=== PATIENT | female | born 1960 | race Caucasian/White ===

== ENCOUNTER → 2017-06-29 | Outpatient (CLI) | payer BC ==
[2017-06-29 11:16] LABS: CH 28.7; CHCM 32.9; HCT 40.5 % (34.0-46.0); MCH 28.1 pg (25.0-35.0); MCV 87.6 fL (80.0-100.0); Mean Platelet Volume 7.9; RBC 4.62 m/uL (3.80-5.40); RDW 13.8 % (11.5-15.5); WBC 5.9 k/uL (3.8-10.6)
[2017-06-29 11:25] LABS: ALT 32 U/L (9-52); AST 23 U/L (14-36); Alkaline Phosphatase 57 U/L (38-126); Anion Gap 9 mmol/L; Blood Urea Nitrogen 12 mg/dL (7-17); Calcium 9.9 mg/dL (8.4-10.2); Carbon Dioxide 31 mmol/L (22-30); Chloride 97 mmol/L (98-107); Glucose 93 mg/dL (74-99); Non-African American GFR(MDRD) >60 (>60 ml/min/1.73 sqM); Sodium 137 mmol/L (137-145); Total Bilirubin 0.5 mg/dL (0.2-1.3); Total Protein 7.3 g/dL (6.3-8.2)
== END | disposition home or self-care (01) ==
LOC: LABWHC1 10:33
PROVIDERS: ATTEND Psychiatry & Neurology Psychiatry
DX: Z01.812 Encounter for preprocedural laboratory examination (principal)
CPT/HCPCS: 36415; 80053; 80164; 84443; 85027

== ENCOUNTER → 2018-03-29 | Outpatient (CLI) | payer BC ==
[2018-03-29 08:12] VITALS: BP 95/67; PULSE 60; RESP 16; TEMP 97.8; BMI 27.8
--- NOTE | 2018-03-29 08:47 | P.HPOB ---
History of Present Illness H&P Date: 03/29/18 Chief Complaint: The patient is here for her routine gynecologic exam and mammogram. This is a 57-year-old G to P2 with an LMP of 12/29/2011. The patient is without gynecologic complaints and denies any postmenopausal bleeding. Review of Systems The patient has lost 12 pounds over the last 2 years. She denies respiratory, cardiac, or G.I. problems. Past Medical History Additional Past Medical History / Comment(s): Bipolar disorder. 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 History of Any Multi-Drug Resistant Organisms: None Reported Past Surgical History: Section, Orthopedic Surgery (Shoulder surgery ) Additional Past Surgical History / Comment(s): Colonoscopy 2011. 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 - Past Family History Mother Additional Family Medical History / Comment(s): Mother had heart disease. She had a maternal aunt who had breast cancer. Father Additional Family Medical History / Comment(s): Father committed suicide. She had a paternal aunt who had breast cancer. Medications and Allergies Home Medications Medication Instructions Recorded Confirmed Type Cholecalciferol [Vitamin D3] 1,000 unit PO DAILY 03/29/18 03/29/18 History Divalproex Sodium 250 mg PO DIRECTED 03/29/18 03/29/18 History Divalproex Sodium 250 mg PO HS 03/29/18 03/29/18 History FLUoxetine HCL [PROzac] 10 mg PO DAILY 03/29/18 03/29/18 History FLUoxetine HCL [PROzac] 20 mg PO DAILY 03/29/18 03/29/18 History L.acidoph,Paracasei, B.lactis 1 each PO DAILY 03/29/18 03/29/18 History [Probiotic] Multivitamins, Thera [Multivitamin 1 tab PO DAILY 03/29/18 03/29/18 History (formulary)] Allergies Allergy/AdvReac Type Severity Reaction Status Date / Time No Known Allergies Allergy Verified 03/29/18 08:39 Exam - Vital Signs Vital signs: Vital Signs Temp Pulse Resp BP 03/29/18 08:04 97.8 F 60 16 95/67 Intake and Output 03/28/18 03/29/18 03/29/18 22:59 06:59 14:59 Other: Weight 68.946 kg Height 5'2", BMI 27.8. This is a well-developed well-nourished white female who is alert and oriented times 3 in no acute distress. HEENT: Within normal limits. NECK: Supple without mass or thyromegaly. CHEST AND LUNGS: Clear to auscultation. HEART: Regular rate and rhythm. BREASTS: Are without mass or discharge. There is minimal right breast tenderness without palpable mass. AXILLARY EXAM: Negative for adenopathy. BACK: Negative for CVA tenderness. ABDOMEN: Soft, nontender, without palpable masses. PELVIC EXAM: Normal external genitalia. Cervix and vagina appear normal with minimal atrophy. There is no unusual discharge. There is no evidence of prolapse. The uterus is midposition, nongravid size and nontender. There are no palpable adnexal masses or tenderness. RECTAL EXAM: rectovaginal exam is negative for mass or tenderness and is negative for occult blood. EXTREMITIES: Nontender. IMPRESSION: 1. 57-year-old menopausal female with normal gynecologic exam. PLAN: 1. Pap smear was performed. 2. Self breast awareness was discussed. 3. Screening mammogram will be done today. 4. Osteoporosis prevention was discussed. She had a normal bone density test done in 2010 per the patient. 5. She will return in one year.
--- NOTE | 2018-03-31 11:54 | MM ---
Reason for exam: screening (asymptomatic). Last mammogram was performed 2 years and 5 months ago. History: Patient is postmenopausal. Family history of breast cancer in paternal aunt at age 65 and breast cancer in maternal aunt at age 65. Benign cyst aspiration of the left breast. Physical Findings: A clinical breast exam by your physician is recommended on an annual basis and results should be correlated with mammographic findings. MG 3D Screening Mammo W/Cad Bilateral CC and MLO view(s) were taken. Prior study comparison: October 15, 2015, bilateral MG screening mammo w CAD. September 04, 2014, bilateral MG screening mammo w CAD. There are scattered fibroglandular densities. No significant changes when compared with prior studies. ASSESSMENT: Benign, BI-RAD 2 RECOMMENDATION: Routine screening mammogram of both breasts in 1 year.
== END | disposition home or self-care (01) ==
LOC: WWCWWP 07:50
PROVIDERS: ATTEND Obstetrics & Gynecology
DX: Z12.31 Encounter for screening mammogram for malignant neoplasm of breast (principal)
CPT/HCPCS: 77063; 77067

== ENCOUNTER 2018-12-15 09:04 | Emergency (ER) | payer OTHER ==
[2018-12-15] MEDS ORDERED: SODIUM CHLORIDE 0.9% 1,000 ML IV STA (09:30)
--- NOTE | 2018-12-15 09:33 | ED ---
General Adult HPI - General Chief complaint: Back Pain/Injury Stated complaint: lower left abdominal pain Time Seen by Provider: 12/15/18 09:14 Source: patient, RN notes reviewed Mode of arrival: ambulatory Limitations: no limitations - History of Present Illness Initial comments: 58-year-old female presents emergency Department with chief complaint of left- sided abdominal and flank pain. Patient states that has been present for last 6-8 weeks but has worsened since Wednesday. Patient was told by her PCP that she was just constipated on multiple occasions. Patient states that she has taken laxatives and give herself an enema with no relief of the symptoms. Patient reports no nausea vomiting melena hematochezia. She has no current dysuria or hematuria. Patient had prior no other abdominal surgeries. - Related Data Home Medications Medication Instructions Recorded Confirmed Cholecalciferol [Vitamin D3] 1,000 unit PO DAILY 03/29/18 12/15/18 Divalproex Sodium 250 mg PO HS 03/29/18 12/15/18 Divalproex Sodium 750 mg PO QAM 03/29/18 12/15/18 L.acidoph,Paracasei, B.lactis 1 each PO DAILY 03/29/18 12/15/18 [Probiotic] Multivitamins, Thera [Multivitamin 1 tab PO DAILY 03/29/18 12/15/18 (formulary)] Docusate [Colace] 100 mg PO DAILY 12/15/18 12/15/18 FLUoxetine HCL [PROzac] 40 mg PO DAILY 12/15/18 12/15/18 Sennosides/Docusate Sodium 1 tab PO DAILY 12/15/18 12/15/18 [Senna-S Laxative Tablet] Vitamin B Complex 1 tab PO DAILY 12/15/18 12/15/18 Previous Rx's Medication Instructions Recorded Ciprofloxacin HCl [Cipro] 500 mg PO Q12HR #14 tablet 12/15/18 metroNIDAZOLE [Flagyl] 500 mg PO TID #21 tab 12/15/18 Allergies Allergy/AdvReac Type Severity Reaction Status Date / Time No Known Allergies Allergy Verified 03/29/18 08:39 Review of Systems ROS Statement: Those systems with pertinent positive or pertinent negative responses have been documented in the HPI. ROS Other: All systems not noted in ROS Statement are negative. Past Medical History Past Medical History: No Reported History Additional Past Medical History / Comment(s): Bipolar disorder. 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 History of Any Multi-Drug Resistant Organisms: None Reported Past Surgical History: Section, Orthopedic Surgery Additional Past Surgical History / Comment(s): Colonoscopy 2011. Past Anesthesia/Blood Transfusion Reactions: No Reported Reaction Past Psychological History: Bipolar Smoking Status: Former smoker Past Alcohol Use History: Rare Past Drug Use History: None Reported - Past Family History Mother Additional Family Medical History / Comment(s): Mother had heart disease. She had a maternal aunt who had breast cancer. Father Additional Family Medical History / Comment(s): Father committed suicide. She had a paternal aunt who had breast cancer. General Exam Limitations: no limitations General appearance: alert, in no apparent distress Head exam: Present: atraumatic, normocephalic, normal inspection Respiratory exam: Present: normal lung sounds bilaterally. Absent: respiratory distress, wheezes, rales, rhonchi, stridor Cardiovascular Exam: Present: regular rate, normal rhythm, normal heart sounds. Absent: systolic murmur, diastolic murmur, rubs, gallop, clicks GI/Abdominal exam: Present: soft, tenderness (Mild left lower quadrant tenderness), normal bowel sounds. Absent: distended, guarding, rebound, rigid Back exam: Absent: CVA tenderness (R), CVA tenderness (L) Skin exam: Present: warm, dry, intact, normal color. Absent: rash Course Vital Signs 12/15/18 09:06 Temperature 98.1 F Pulse Rate 73 Respiratory 18 Rate Blood Pressure 114/54 O2 Sat by Pulse 100 Oximetry Medical Decision Making - Medical Decision Making 58-year-old female presented for abdominal pain. Patient lab work, urinalysis and CT. CT shows evidence of colitis and stool burden. Patient also has evidence of pelvic congestion syndrome. 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 Patient which she for colitis and constipation with MiraLAX. - Lab Data Result diagrams: 12/15/18 09:51 12/15/18 09:51 Lab Results 12/15/18 12/15/18 12/15/18 Range/Units 09:51 09:51 09:51 WBC 5.0 (3.8-10.6) k/uL RBC 4.43 (3.80-5.40) m/uL Hgb 12.5 (11.4-16.0) gm/dL Hct 39.2 (34.0-46.0) % MCV 88.6 (80.0-100.0) fL MCH 28.2 (25.0-35.0) pg MCHC 31.9 (31.0-37.0) g/dL RDW 13.4 (11.5-15.5) % Plt Count 227 (150-450) k/uL Neutrophils % 49 % Lymphocytes % 39 % Monocytes % 7 % Eosinophils % 1 % Basophils % 0 % Neutrophils # 2.5 (1.3-7.7) k/uL Lymphocytes # 2.0 (1.0-4.8) k/uL Monocytes # 0.4 (0-1.0) k/uL Eosinophils # 0.0 (0-0.7) k/uL Basophils # 0.0 (0-0.2) k/uL Sodium 141 (137-145) mmol/L Potassium 4.4 (3.5-5.1) mmol/L Chloride 105 (98-107) mmol/L Carbon Dioxide 30 (22-30) mmol/L Anion Gap 6 mmol/L BUN 23 H (7-17) mg/dL Creatinine 0.67 (0.52-1.04) mg/dL Est GFR (CKD-EPI)AfAm >90 (>60 ml/min/1.73 sqM) Est GFR (CKD-EPI)NonAf >90 (>60 ml/min/1.73 sqM) Glucose 82 (74-99) mg/dL Calcium 9.2 (8.4-10.2) mg/dL Total Bilirubin 0.4 (0.2-1.3) mg/dL AST 25 (14-36) U/L ALT 26 (9-52) U/L Alkaline Phosphatase 55 (38-126) U/L Total Protein 6.7 (6.3-8.2) g/dL Albumin 3.8 (3.5-5.0) g/dL Amylase 41 (30-110) U/L Lipase 95 (23-300) U/L Urine Color Yellow Urine Appearance Clear (Clear) Urine pH 8.0 (5.0-8.0) Ur Specific [place] 1.019 (1.001-1.035) Urine Protein Trace H (Negative) Urine Glucose (UA) Negative (Negative) Urine Ketones Negative (Negative) Urine Blood Trace H (Negative) Urine Nitrite Negative (Negative) Urine Bilirubin Negative (Negative) Urine Urobilinogen <2.0 (<2.0) mg/dL Ur Leukocyte Esterase Negative (Negative) Urine RBC 15 H (0-5) /hpf Ur Squamous Epith Cells <1 (0-4) /hpf Urine Mucus Rare H (None) /hpf Disposition Clinical Impression: Colitis, Constipation Disposition: HOME SELF-CARE Condition: Stable Instructions (If sedation given, give patient instructions): Colitis (ED) Additional Instructions: Please return to the Emergency Department if symptoms worsen or any other concerns. Take [id number] MiraLAX Prescriptions: Ciprofloxacin HCl [Cipro] 500 mg PO Q12HR #14 tablet metroNIDAZOLE [Flagyl] 500 mg PO TID #21 tab Is patient prescribed a controlled substance at d/c from ED?: No Referrals: Cara Gonzales MD [Primary Care Provider] - 1-2 days Time of Disposition: 11:22
[2018-12-15] MEDS ORDERED: KETOROLAC 30 MG/ML 1 ML VIAL IVP STA (09:55)
[2018-12-15 10:24] LABS: Basophils % (A) 0 %; Eosinophils % (A) 1 %; HCT 39.2 % (34.0-46.0); HGB 12.5 gm/dL (11.4-16.0); Lymphocytes % (A) 39 %; MCH 28.2 pg (25.0-35.0); MCHC 31.9 g/dL (31.0-37.0); MCV 88.6 fL (80.0-100.0); Mean Platelet Volume 7.1; Monocytes # (A) 0.4 k/uL (0-1.0); Monocytes % (A) 7 %; Neutrophils # (A) 2.5 k/uL (1.3-7.7); Neutrophils % (A) 49 %; Platelet Count 227 k/uL (150-450); RBC 4.43 m/uL (3.80-5.40); RDW 13.4 % (11.5-15.5)
[2018-12-15 10:28] LABS: Appearance,Urine Clear (Clear); Bilirubin,Urine Negative (Negative); Blood,Urine Trace (Negative); Color,Urine Yellow; Glucose,Urine (UA) Negative (Negative); Ketones,Urine Negative (Negative); Leukocyte Esterase,Urine Negative (Negative); Mucus,Urine Rare /hpf; Nitrite,Urine Negative (Negative); Protein,Urine Trace (Negative); RBC,Urine 15 /hpf (0-5); Specific Gravity,Urine 1.019 (1.001-1.035); Squamous Epithelial Cell,Urine <1 /hpf (0-4); Urobilinogen,Urine <2.0 mg/dL (<2.0)
--- NOTE | 2018-12-15 10:29 | CT ---
EXAMINATION TYPE: CT abdomen pelvis w con DATE OF EXAM: 12/15/2018 HISTORY: LLQ pain, constipation CT DLP: 718.3mGycm Automated Exposure Control for Dose Reduction was Utilized. CONTRAST: CT scan of the abdomen and pelvis is performed with IV Contrast, patient injected with 100 mL of Isov ue 300. COMPARISON: None. FINDINGS: LUNG BASES: No significant abnormality is appreciated. LIVER/GB: There is mild hepatomegaly as the liver extends beyond the iliac crest. Too small to accura tely characterize left hepatic hypoattenuated lesion is present on image 20. No cholelithiasis. PANCREAS: No significant abnormality is seen. SPLEEN: No significant abnormality is seen. ADRENALS: There is slight thickening of the left adrenal gland although it maintains its normal adren iform shape, most commonly related to adrenal gland hyperplasia. KIDNEYS: There is are too small to accurately characterize bilateral renal lesions. Otherwise the kid neys enhance and excrete symmetrically. No hydronephrosis. BOWEL: There is a moderate fecal burden throughout the large bowel. Appendix is not clearly visualize d however no right lower quadrant fat stranding changes are seen. No dilated large or small bowel is noted. There is very subtle haziness surrounding the sigmoid colon and descending colon extending to the splenic flexure without bowel wall thickening. No pericolonic fluid collection to suggest abscess . UTERUS/ADNEXA: Pelvic varices are seen diffusely throughout the pelvis. LYMPH NODES: No greater than 1cm abdominal or pelvic lymph nodes are appreciated. OSSEOUS STRUCTURES: Mild multilevel degenerative changes of the lumbar spine are noted. IMPRESSION: 1. Findings highly suggestive of pelvic congestion syndrome. 2. Very subtle long segment pericolonic fat stranding surrounding the sigmoid colon, descending colon and splenic flexure that may relate to very mild acute uncomplicated colitis. Moderate burden coloni c stasis. 3. Hepatomegaly.
[2018-12-15 10:39] LABS: ALT 26 U/L (9-52); AST 25 U/L (14-36); Albumin 3.8 g/dL (3.5-5.0); Alkaline Phosphatase 55 U/L (38-126); Amylase 41 U/L (30-110); Anion Gap 6 mmol/L; Blood Urea Nitrogen 23 mg/dL (7-17); Calcium 9.2 mg/dL (8.4-10.2); Carbon Dioxide 30 mmol/L (22-30); Chloride 105 mmol/L (98-107); Glucose 82 mg/dL (74-99); Lipase 95 U/L (23-300); Potassium 4.4 mmol/L (3.5-5.1); Sodium 141 mmol/L (137-145); Total Bilirubin 0.4 mg/dL (0.2-1.3); Total Protein 6.7 g/dL (6.3-8.2)
[2018-12-15 11:43] VITALS: BP 104/66; PULSE 60; RESP 16; TEMP 97.7
== END 2018-12-15 11:40 | disposition home or self-care (01) ==
LOC: EC 09:04
DX: K59.00 Constipation, unspecified (principal); K52.9 Noninfective gastroenteritis and colitis, unspecified; F31.9 Bipolar disorder, unspecified; Z79.899 Other long term (current) drug therapy; Z87.891 Personal history of nicotine dependence
CPT/HCPCS: 36415; 74177; 80053; 81001; 82150; 83690; 85025; 96361; 96374; 99284

== ENCOUNTER → 2019-06-07 | Outpatient (CLI) | payer OTHER ==
[2019-06-07 08:01] VITALS: BP 101/71; PULSE 71; RESP 16; TEMP 97.9; BMI 29.9
--- NOTE | 2019-06-07 08:32 | P.HPOB ---
History of Present Illness H&P Date: 06/07/19 Chief Complaint: The patient is here for her routine gynecologic exam and ma mmogram. This is a 58-year-old with an LMP of 2011. The patient is without gynecologic complaints and denies any postmenopausal bleeding. Review of Systems The patient has gained 11 pounds over the last year. She denies respiratory, cardiac, or G.I. problems. Past Medical History Additional Past Medical History / Comment(s): Bipolar disorder. 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 History of Any Multi-Drug Resistant Organisms: None Reported Past Surgical History: Section, Orthopedic Surgery Additional Past Surgical History / Comment(s): Colonoscopy 2011. Past Anesthesia/Blood Transfusion Reactions: No Reported Reaction Past Psychological History: Bipolar Smoking Status: Former smoker Past Alcohol Use History: Rare Additional Past Alcohol Use History / Comment(s): Quit smoking in her early 20s. 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. - Past Family History Mother Additional Family Medical History / Comment(s): Mother had heart disease. She had a maternal aunt who had breast cancer. Father Additional Family Medical History / Comment(s): Father committed suicide. She had a paternal aunt who had breast cancer. Medications and Allergies Home Medications Medication Instructions Recorded Confirmed Type Cholecalciferol [Vitamin D3] 1,000 unit PO DAILY 03/29/18 06/07/19 History Divalproex Sodium 250 mg PO HS 03/29/18 06/07/19 History Divalproex Sodium 750 mg PO QAM 03/29/18 06/07/19 History L.acidoph,Paracasei, B.lactis 1 each PO DAILY 03/29/18 06/07/19 History [Probiotic] Multivitamins, Thera [Multivitamin 1 tab PO DAILY 03/29/18 06/07/19 History (formulary)] FLUoxetine HCL [PROzac] 40 mg PO DAILY 12/15/18 06/07/19 History Vitamin B Complex 1 tab PO DAILY 12/15/18 06/07/19 History Allergies Allergy/AdvReac Type Severity Reaction Status Date / Time No Known Allergies Allergy Verified 06/07/19 08:02 Exam Vital Signs Temp Pulse Resp BP Pulse Ox 06/07/19 07:54 97.9 F 71 16 101/71 99 Intake and Output 06/06/19 06/07/19 06/07/19 22:59 06:59 14:59 Other: Weight 74.389 kg Height 5'2", weight 164 pounds, BMI 30.0. This is a well-developed well-nourished white female who is alert and oriented times 3 in no acute distress. HEENT: Within normal limits. NECK: Supple without mass or thyromegaly. CHEST AND LUNGS: Clear to auscultation. HEART: Regular rate and rhythm. BREASTS: Are without mass or discharge. AXILLARY EXAM: Negative for adenopathy. BACK: Negative for CVA tenderness. ABDOMEN: Soft, nontender, without palpable masses. PELVIC EXAM: Normal external genitalia with minimal atrophy. Cervix and vagina appear normal with minimal atrophy. There is no unusual discharge. There is no evidence of prolapse. The uterus is midposition, nongravid size and nontender. There are no palpable adnexal masses or tenderness. RECTAL EXAM: recto vaginal exam is negative for mass or tenderness and is negative for occult blood. EXTREMITIES: Nontender. IMPRESSION: 1. 58-year-old menopausal female with normal gynecologic exam. PLAN: 1. Pap smear was deferred since she had a normal one on 03/29/2018. 2. Self breast awareness was discussed with the patient. 3. Screening mammogram will be done today. 4. Osteoporosis prevention was discussed. I have stressed the importance of adequate calcium, vitamin D and regular exercise. Recommended amounts of calcium and vitamin D were also discussed. We will plan on doing a bone density test at age 62. 5. She was advised to return in one year for her annual well woman exam.
--- NOTE | 2019-06-08 14:37 | MM ---
Reason for exam: screening (asymptomatic). Last mammogram was performed 1 year and 2 months ago. History: Patient is postmenopausal. Family history of breast cancer in paternal aunt at age 65 and breast cancer in maternal aunt at age 65. Benign cyst aspiration of the left breast. Physical Findings: A clinical breast exam by your physician is recommended on an annual basis and results should be correlated with mammographic findings. MG 3D Screening Mammo W/Cad Bilateral CC and MLO view(s) were taken. Prior study comparison: March 29, 2018, bilateral MG 3d screening mammo w/cad. October 15, 2015, bilateral MG screening mammo w CAD. The breast tissue is heterogeneously dense. This may lower the sensitivity of mammography. There are benign appearing round calcifications bilaterally. There is no discrete abnormality. ASSESSMENT: Benign, BI-RAD 2 RECOMMENDATION: Routine screening mammogram of both breasts in 1 year.
== END | disposition home or self-care (01) ==
LOC: WWCWWP 07:46
PROVIDERS: ATTEND Obstetrics & Gynecology
DX: Z12.31 Encounter for screening mammogram for malignant neoplasm of breast (principal)
CPT/HCPCS: 77063; 77067

== ENCOUNTER → 2020-07-16 | Outpatient (CLI) | payer OTHER ==
--- NOTE | 2020-07-16 10:07 | US ---
EXAMINATION TYPE: US abdomen complete DATE OF EXAM: 07/16/2020 COMPARISON: CT 12/15/2018 CLINICAL HISTORY: R10.11 right upper quadrant pain. EXAM MEASUREMENTS: Liver Length: 16.9 cm Gallbladder Wall: 0.1 cm CBD: 0.5 cm Spleen: 7.7 cm Right Kidney: 10.0 x 3.5 x 4.7 cm Left Kidney: 10.0 x 5.6 x 4.8 cm Pancreas: Obscured by bowel gas Liver: Tiny cystic area left lobe 0.6 cm Gallbladder: wnl Evidence for sonographic [place]'s sign: No CBD: wnl Spleen: wnl Right Kidney: No hydronephrosis. Tiny cystic area lower pole measuring 0.5 Left Kidney: No hydronephrosis. Multiple cystic areas visualized, largest measuring 0.9 cm Upper IVC: wnl Abd Aorta: wnl The liver is homogenous. Technologist marked subcentimeter thin-walled cyst left hepatic lobe likely corresponding to CT axial image 20. The intrahepatic portion of the IVC and visualized abdominal aor ta are within normal limits. There is no evidence of cholelithiasis. Common bile duct is unremarkab le. The visualized portions of the pancreas are homogenous on initial 4 images saved. The spleen is unremarkable. Kidneys are symmetric and free of hydronephrosis. Technologist amaral for a 5 mm thin -walled cyst right kidney lower pole level likely corresponds to CT lesion delayed axial image 34, sl ightly larger thin-walled cyst upper pole level image 22 not clearly seen on ultrasound images saved. Technologist amaral location subcentimeter thin-walled cysts throughout the left kidney which corresp onds to recent CT. IMPRESSION: No suspicious acute or new findings identified.
== END | disposition home or self-care (01) ==
LOC: RADUSWWP 07:01
PROVIDERS: ATTEND Family Medicine
DX: R10.11 Right upper quadrant pain (principal)
CPT/HCPCS: 76700

== ENCOUNTER → 2020-08-21 | Outpatient (CLI) | payer OTHER ==
[2020-08-21 08:08] VITALS: BP 93/66; PULSE 78; RESP 18; TEMP 98
--- NOTE | 2020-08-21 08:42 | P.HPOB ---
History of Present Illness H&P Date: 08/21/20 Chief Complaint: The patient is here for her routine gynecologic exam and ma mmogram. This is a 59-year-old with an LMP of 2011. The patient is without gynecologic complaints and denies any postmenopausal bleeding. Review of Systems The patient's weight has been stable over the last year. She denies respiratory or cardiac problems. GI: Occasional constipation. Past Medical History Past Medical History: No Reported History Additional Past Medical History / Comment(s): Bipolar disorder. 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 History of Any Multi-Drug Resistant Organisms: None Reported Past Surgical History: Section, Orthopedic Surgery Additional Past Surgical History / Comment(s): Colonoscopy 2019. Past Anesthesia/Blood Transfusion Reactions: No Reported Reaction Past Psychological History: Bipolar Smoking Status: Former smoker Past Alcohol Use History: Occasional (1 or 2 per month) Additional Past Alcohol Use History / Comment(s): Quit smoking in her early 20s. 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. - Past Family History Mother Additional Family Medical History / Comment(s): Mother had heart disease. She had a maternal aunt who had breast cancer. Father Additional Family Medical History / Comment(s): Father committed suicide. She had a paternal aunt who had breast cancer. Medications and Allergies Home Medications Medication Instructions Recorded Confirmed Type Cholecalciferol [Vitamin D3] 1,000 unit PO DAILY 03/29/18 08/21/20 History Divalproex Sodium 250 mg PO HS 03/29/18 08/21/20 History Divalproex Sodium 750 mg PO QAM 03/29/18 08/21/20 History L.acidoph,Paracasei, B.lactis 1 each PO DAILY 03/29/18 08/21/20 History [Probiotic] Multivitamins, Thera [Multivitamin 1 tab PO DAILY 03/29/18 08/21/20 History (formulary)] FLUoxetine HCL [PROzac] 40 mg PO DAILY 12/15/18 08/21/20 History Vitamin B Complex 1 tab PO DAILY 12/15/18 08/21/20 History Magnesium 200 mg PO DAILY 08/21/20 08/21/20 History Vitamin E 400 unit PO DAILY 08/21/20 08/21/20 History Allergies Allergy/AdvReac Type Severity Reaction Status Date / Time No Known Allergies Allergy Verified 08/21/20 08:00 Exam Vital Signs Temp Pulse Resp BP Pulse Ox 08/21/20 08:02 98.0 F 78 18 93/66 99 Intake and Output 08/20/20 08/21/20 08/21/20 22:59 06:59 14:59 Other: Weight 73.936 kg Height 5 feet 2 inches, weight 163 pounds, BMI 29.8. This is a well-developed well-nourished white female who is alert and oriented times 3 in no acute distress. HEENT: Within normal limits. NECK: Supple without mass or thyromegaly. CHEST AND LUNGS: Clear to auscultation. HEART: Regular rate and rhythm. BREASTS: Are without mass or discharge. AXILLARY EXAM: Negative for adenopathy. BACK: Negative for CVA tenderness. ABDOMEN: Soft, nontender, without palpable masses. PELVIC EXAM: Normal external genitalia with mild atrophy. Cervix and vagina appear normal with minimal atrophy. There is no unusual discharge. There is no evidence of prolapse. The uterus is midposition, nongravid size and nontender. There are no palpable adnexal masses or tenderness. RECTAL EXAM: Rectovaginal exam is negative for mass or tenderness and is negative for occult blood. A moderate amount of firm stool is noted in the rectum. EXTREMITIES: Nontender. IMPRESSION: 1. 59-year-old menopausal female with normal gynecologic exam. PLAN: 1. Pap smear cotest was performed. 2. Self breast awareness was discussed with the patient. 3. Screening mammogram will be done today. 4. Osteoporosis prevention was discussed. I have stressed the importance of adequate calcium, vitamin D and regular exercise. Recommended amounts of calcium and vitamin D were also discussed. We will plan on doing her next bone density test at age 62. 5. She was advised to return in one year for her annual well woman exam.
--- NOTE | 2020-08-22 11:32 | MM ---
Reason for exam: screening (asymptomatic). Last mammogram was performed 1 year and 2 months ago. History: Patient is postmenopausal. Family history of breast cancer in paternal aunt at age 65 and breast cancer in maternal aunt at age 65. Benign cyst aspiration of the left breast. Physical Findings: A clinical breast exam by your physician is recommended on an annual basis and results should be correlated with mammographic findings. MG 3D Screening Mammo W/Cad Bilateral CC and MLO view(s) were taken. Prior study comparison: June 07, 2019, bilateral MG 3d screening mammo w/cad. March 29, 2018, bilateral MG 3d screening mammo w/cad. No significant changes when compared with prior studies. ASSESSMENT: Benign, BI-RAD 2 RECOMMENDATION: Routine screening mammogram of both breasts in 1 year.
== END | disposition home or self-care (01) ==
LOC: WWCWWP 07:44
PROVIDERS: ATTEND Obstetrics & Gynecology
DX: Z12.31 Encounter for screening mammogram for malignant neoplasm of breast (principal)
CPT/HCPCS: 77063; 77067

== ENCOUNTER → 2020-09-09 | Outpatient (CLI) | payer OTHER ==
--- NOTE | 2020-09-09 12:56 | US ---
EXAMINATION TYPE: US thyroid st tissue head/neck DATE OF EXAM: 09/09/2020 COMPARISON: NONE CLINICAL HISTORY: 59-year-old female E04.1 THYROID NODULE. TECHNIQUE: Multiple sonographic images of the thyroid gland are obtained. FINDINGS: GLAND SIZE: Right Lobe: 4.4 x 1.1 x 1.5 cm Overall Parenchyma: Homogeneous Left Lobe: 4.6 x 1.1 x 1.2 cm Overall Parenchyma: homogeneous Isthmus Thickness: 0.3 cm NODULES RIGHT: # of nodules measured on right: 0 LEFT: # of nodules measured on left: 0 ISTHMUS: # of nodules measured in the isthmus: 0 Bilateral neck scanned, no evidence of lymphadenopathy. IMPRESSION: Borderline enlarged thyroid gland. No discrete nodules.
[2020-09-09 14:13] LABS: T4, Free (Free Thyroxine) 0.91 ng/dL (0.78-2.19)
== END | disposition home or self-care (01) ==
LOC: RADUSWWP 12:11
PROVIDERS: ATTEND Internal Medicine
DX: E04.9 Nontoxic goiter, unspecified (principal); E06.0 Acute thyroiditis
CPT/HCPCS: 76536; 84439; 84443

== ENCOUNTER → 2021-11-04 | Outpatient (CLI) | payer OTHER ==
[2021-11-04 08:54] VITALS: BP 119/67; PULSE 65; RESP 18; TEMP 97.9
--- NOTE | 2021-11-04 09:29 | P.HPOB ---
History of Present Illness H&P Date: 11/04/21 Chief Complaint: The patient is here for her routine gynecologic exam and ma mmogram. This is a 60-year-old with an LMP of 2011. The patient is without gynecologic complaints and denies any postmenopausal bleeding. Review of Systems The patient has gained 11 pounds over the last year. She denies cardiac or GI problems. Respiratory: She occasionally notices some phlegm when she has not taken a deep breath for a while. This can occasionally make her cough. Musculoskeletal: She has had occasional right shoulder discomfort. Past Medical History Past Medical History: No Reported History Additional Past Medical History / Comment(s): Bipolar disorder. 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 History of Any Multi-Drug Resistant Organisms: None Reported Past Surgical History: Section, Orthopedic Surgery Additional Past Surgical History / Comment(s): Colonoscopy 2020. Past Anesthesia/Blood Transfusion Reactions: No Reported Reaction Past Psychological History: Bipolar Smoking Status: Former smoker Past Alcohol Use History: Occasional (1 per week) Additional Past Alcohol Use History / Comment(s): Quit smoking in her early 20s. 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 She had a maternal aunt who had breast cancer. Father Additional Family Medical History / Comment(s): Father committed suicide. She had a paternal aunt who had breast cancer. Medications and Allergies Home Medications Medication Instructions Recorded Confirmed Type Cholecalciferol [Vitamin D3] 1,000 unit PO DAILY 03/29/18 11/04/21 History Divalproex Sodium 250 mg PO HS 03/29/18 11/04/21 History Divalproex Sodium 750 mg PO QAM 03/29/18 11/04/21 History L.acidoph,Paracasei, B.lactis 1 each PO DAILY 03/29/18 11/04/21 History [Probiotic] Multivitamins, Thera [Multivitamin 1 tab PO DAILY 03/29/18 11/04/21 History (formulary)] FLUoxetine HCL [PROzac] 40 mg PO DAILY 12/15/18 11/04/21 History Vitamin B Complex 1 tab PO DAILY 12/15/18 11/04/21 History Magnesium 200 mg PO DAILY 08/21/20 11/04/21 History Vitamin E 400 unit PO DAILY 08/21/20 11/04/21 History Allergies Allergy/AdvReac Type Severity Reaction Status Date / Time No Known Allergies Allergy Verified 11/04/21 08:49 Exam Vital Signs Temp Pulse Resp BP Pulse Ox 11/04/21 08:50 97.9 F 65 18 119/67 100 Intake and Output 11/03/21 11/04/21 11/04/21 22:59 06:59 14:59 Other: Weight 78.925 kg Height 5 feet 3 inches, weight 174 pounds, BMI 30.8. This is a well-developed well-nourished white female who is alert and oriented times 3 in no acute distress. HEENT: Within normal limits. NECK: Supple without mass or thyromegaly. CHEST AND LUNGS: Clear to auscultation. HEART: Regular rate and rhythm. BREASTS: Are without mass or discharge. AXILLARY EXAM: Negative for adenopathy. BACK: Negative for CVA tenderness. ABDOMEN: Soft, nontender, without palpable masses. PELVIC EXAM: Normal external genitalia. Cervix and vagina appear normal. There is no unusual discharge. There is no evidence of prolapse. The uterus is midposition, nongravid size and nontender. There are no palpable adnexal masses or tenderness. RECTAL EXAM: Rectovaginal exam is negative for mass or tenderness and is negative for occult blood. EXTREMITIES: Nontender. IMPRESSION: 1. 60-year-old menopausal female with normal gynecologic exam. PLAN: 1. Pap smear was deferred since she had a negative Pap smear cotest on 08/21/2020. 2. Self breast awareness was discussed with the patient. We have also discussed symptoms associated with inflammatory breast cancer. 3. Screening mammogram will be done today. 4. Osteoporosis prevention was discussed. I have stressed the importance of adequate calcium, vitamin D and regular exercise. Recommended amounts of calcium and vitamin D were also discussed. We will plan on repeating her bone density testing at age 62. 5. She has not received a Covid vaccination. I have strongly encouraged her to get a Covid vaccination especially given her place of employment. She will consider this. 6. She was advised to return in one year for her annual well woman exam.
--- NOTE | 2021-11-05 14:12 | MM ---
Reason for exam: screening (asymptomatic). Last mammogram was performed 1 year and 2 months ago. History: Patient is postmenopausal. Family history of breast cancer in paternal aunt at age 65 and breast cancer in maternal aunt at age 65. Benign cyst aspiration of the left breast. Physical Findings: A clinical breast exam by your physician is recommended on an annual basis and results should be correlated with mammographic findings. MG 3D Screening Mammo W/Cad Bilateral CC and MLO view(s) were taken. Prior study comparison: August 21, 2020, bilateral MG 3d screening mammo w/cad. June 07, 2019, bilateral MG 3d screening mammo w/cad. There are scattered fibroglandular densities. There are benign appearing round calcifications bilaterally. There is no discrete abnormality. ASSESSMENT: Benign, BI-RAD 2 RECOMMENDATION: Routine screening mammogram of both breasts in 1 year.
== END ==
LOC: WWCWWP 08:24
PROVIDERS: ATTEND Obstetrics & Gynecology
DX: Z12.31 Encounter for screening mammogram for malignant neoplasm of breast (principal); F31.9 Bipolar disorder, unspecified; Z87.891 Personal history of nicotine dependence; Z79.899 Other long term (current) drug therapy
CPT/HCPCS: 77063; 77067

== ENCOUNTER → 2024-01-12 | Outpatient (CLI) | payer OTHER ==
[2024-01-12 11:16] VITALS: BP 110/70; PULSE 63; RESP 17; TEMP 98
--- NOTE | 2024-01-12 12:08 | P.HPOB ---
History of Present Illness H&P Date: 01/12/24 Chief Complaint: The patient is here for her routine gynecologic exam and ma mmogram. This is a 63-year-old with an LMP of 2011. The patient is without gynecologic complaints and denies any postmenopausal bleeding. Review of Systems She has lost about 4 pounds over the past year. She denies respiratory or GI problems. Cardiac: She states she can get slightly short of breath with stair climbing. She states walking on the treadmill and exercise at [employer] does not seem to cause the same problems. Past Medical History Past Medical History: No Reported History Additional Past Medical History / Comment(s): Bipolar disorder. 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 History of Any Multi-Drug Resistant Organisms: None Reported Past Surgical History: Section, Orthopedic Surgery Additional Past Surgical History / Comment(s): Colonoscopy 2020(next after 5yr). Past Anesthesia/Blood Transfusion Reactions: No Reported Reaction Past Psychological History: Bipolar Smoking Status: Former smoker Past Alcohol Use History: Occasional (About 3 drinks per month.) Additional Past Alcohol Use History / Comment(s): Quit smoking in her early 20s. 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 - Past Family History Mother Additional Family Medical History / Comment(s): Mother had heart disease. She had a maternal aunt who had breast cancer. Father Additional Family Medical History / Comment(s): Father committed suicide. She had a paternal aunt who had breast cancer. Medications and Allergies Home Medications Medication Instructions Recorded Confirmed Type Cholecalciferol [Vitamin D3] 1,000 unit PO DAILY 03/29/18 01/12/24 History Divalproex Sodium 750 mg PO BID 03/29/18 01/12/24 History Multivitamins, Thera [Multivitamin 1 tab PO DAILY 03/29/18 01/12/24 History (formulary)] FLUoxetine HCL [PROzac] 40 mg PO BID 12/15/18 01/12/24 History Vitamin B Complex 1 tab PO DAILY 12/15/18 01/12/24 History Magnesium 200 mg PO DAILY 08/21/20 01/12/24 History Vitamin E 400 unit PO DAILY 08/21/20 01/12/24 History Allergies Allergy/AdvReac Type Severity Reaction Status Date / Time No Known Allergies Allergy Verified 01/12/24 10:40 Exam Vital Signs Temp Pulse Resp BP Pulse Ox 01/12/24 10:40 98 F 63 17 110/70 99 Intake and Output 01/11/24 01/12/24 01/12/24 22:59 06:59 14:59 Other: Weight 73.936 kg Height 5 feet 2 inches, weight 163 pounds, BMI 29.8 This is a well-developed well-nourished white female who is alert and oriented times 3 in no acute distress. HEENT: Within normal limits. NECK: Supple without mass or thyromegaly. CHEST AND LUNGS: Clear to auscultation. HEART: Regular rate and rhythm. BREASTS: Are without mass or discharge. AXILLARY EXAM: Negative for adenopathy. BACK: Negative for CVA tenderness. ABDOMEN: Soft, nontender, without palpable masses. PELVIC EXAM: Normal external genitalia mild atrophy. Cervix and vagina appear normal with mild atrophy. There is no unusual discharge. There is no evidence of prolapse. The uterus is midposition, nongravid size and nontender. There are no palpable adnexal masses or tenderness. RECTAL EXAM: Rectovaginal exam is negative for mass or tenderness and is negative for occult blood. EXTREMITIES: Nontender. IMPRESSION: 1. 63-year-old menopausal female with normal gynecologic exam. PLAN: 1. Pap smear was deferred since she had a negative Pap smear cotest on 08/21/2020 2. Self breast awareness was discussed with the patient. We have also discussed symptoms associated with inflammatory breast cancer. 3. Screening mammogram will be done today. 4. Osteoporosis prevention was discussed. I have stressed the importance of adequate calcium, vitamin D and regular exercise. Recommended amounts of calcium and vitamin D were also discussed. Bone density testing will be done today. 5. I have recommended that she follow-up with her PCP regarding shortness of breath with stair climbing. 6. She was advised to return in one year for her annual well woman exam.
--- NOTE | 2024-01-12 17:52 | BD ---
EXAMINATION TYPE: Axial Bone Density DATE OF EXAM: 01/12/2024 CLINICAL HISTORY: 63 years old Female. ICD-10 CODE: Z78.0 POST MENOPAUSAL Height: 62 Weight: 160 FRAX RISK QUESTIONS: Family History (Parent hip fracture): no History of Fracture in Adulthood: no Secondary Osteoporosis: no RISK FACTORS HISTORY OF: Surgery to Spine/Hip(right/left)/Wrist (right/left): no MEDICATIONS: Thyroid Medications: no Osteoporosis Medications: no EXAM MEASUREMENTS: Bone mineral densitometry was performed using the [employer] System. Bone mineral density as measured about the Lumbar spine is: ----- L1-L4(G/cm2): 1.331 T Score Values are as follows: ----- L1: 1.0 ----- L2: 1.0 ----- L3: 1.4 ----- L4: 1.3 ----- L1-L4: 1.3 Z Score Values are as follows: ----- L1: 2.1 ----- L2: 2.0 ----- L3: 2.5 ----- L4: 2.3 ----- L1-L4: 2.3 Bone mineral density baseline Bone mineral density about the R hip (g/cm2): 1.007 Bone mineral density about the L hip (g/cm2): 0.979 T Score values are as follows: -----R Neck: -1.3 -----L Neck: -0.9 -----R Total: 0.0 -----L Total: -0.2 Z Score values are as follows: -----R Neck: -0.2 -----L Neck: 0.2 -----R Total: 0.8 -----L Total: 0.6 Bone mineral density baseline FRAX%s: The graph provided illustrates a 7.6% chance for a major osteoporotic fx and a 0.6% chance fo r the hips probability for fx in 10 years time. IMPRESSION: Osteopenia (T Score between -2.5 and -1). There is slightly increased risk of fracture and the patient may be considered for treatment. Re-Screen 2-5 years. NOTE: T-SCORE=SD OF THE YOUNG ADULT MEAN.
--- NOTE | 2024-01-13 00:55 | MM ---
Reason for Exam: Screening (asymptomatic). Last mammogram was performed 1 year(s) and 2 month(s) ago. Patient History: Menarche at age 14. First Full-Term at age 23. Postmenopausal. Patient has history of breast feeding. Benign Cyst Aspiration on the left side. Paternal aunt had breast cancer, age 65. Maternal aunt had breast cancer, age 65. Risk Values: Tory 5 year model risk: 1.3%. NCI Lifetime model risk: 6.4%. Prior Study Comparison: 08/21/2020 Bilateral Screening Mammogram, [facility]. 11/04/2021 Bilateral Screening Mammogram, [facility]. 12/01/2022 Bilateral MG 3D screening mammo w/cad, [facility]. Tissue Density: There are scattered areas of fibroglandular density. Findings: Analyzed By CAD. The pattern is symmetrical. Benign spherical calcifications are present bilaterally. No suspicious groups of microcalcifications, spiculated or lobular masses, architectural distortion or other secondary signs of malignancy are mammographically apparent. Overall Assessment: Benign, BI-RAD 2 Management: Screening Mammogram of both breasts in 1 year. A negative mammogram report should not preclude additional follow up of suspicious palpable abnormalities. Patient should continue monthly self breast exam. A clinical breast exam by your physician is recommended on an annual basis and results should be correlated with mammographic findings. Electronically signed and approved by: Niles Roman D.O. Radiologis
== END ==
LOC: WWCWWP 10:25
PROVIDERS: ATTEND Obstetrics & Gynecology
DX: Z01.419 Encounter for gynecological examination (general) (routine) without abnormal findings (principal); Z12.31 Encounter for screening mammogram for malignant neoplasm of breast; M85.80 Other specified disorders of bone density and structure, unspecified site; Z78.0 Asymptomatic menopausal state; Z80.3 Family history of malignant neoplasm of breast; Z87.891 Personal history of nicotine dependence
CPT/HCPCS: 77063; 77067; 77080

== ENCOUNTER → 2024-11-13 | Outpatient (CLI) | payer OTHER ==
[2024-11-13 15:28] LABS: Appearance,Urine Clear (Clear); Bilirubin,Urine Negative (Negative); Blood,Urine Negative (Negative); Color,Urine Light Yellow; Glucose,Urine (UA) Negative (Negative); Ketones,Urine Negative (Negative); Leukocyte Esterase,Urine Negative (Negative); Nitrite,Urine Negative (Negative); PH, Urine 7.5 (5.0-8.0); Protein,Urine Negative (Negative); Specific Gravity,Urine 1.009 (1.001-1.035); Urobilinogen,Urine <2.0 mg/dL (<2.0)
[2024-11-13 19:38] LABS: HCT 39.5 % (37.2-46.3); HGB 12.3 g/dL (12.0-15.0); MCH 27.6 pg (27.0-32.0); MCHC 31.1 g/dL (32.0-37.0); MCV 88.6 FL (80.0-97.0); Mean Platelet Volume 11.7 FL (9.5-12.2); NRBC Per 100 WBC 0 X 10*3/uL (0.00-0.01); Platelet Count 234 X 10*3/uL (140-440); RBC 4.46 X 10*6/uL (4.10-5.20); RDW 13.8 % (11.5-14.5); WBC 7.33 X 10*3/uL (4.50-10.00)
[2024-11-13 19:39] LABS: Basophils # (A) 0.01 X 10*3/uL (0.00-0.10); Basophils % (A) 0.1 %; Eosinophils # (A) 0.05 X 10*3/uL (0.04-0.35); Eosinophils % (A) 0.7 %; Lymphocytes # (A) 2.58 X 10*3/uL (0.90-5.00); Lymphocytes % (A) 35.2 %; Monocytes # (A) 0.61 X 10*3/uL (0.20-1.00); Monocytes % (A) 8.3 %; Neutrophils # (A) 4.06 X 10*3/uL (1.80-7.70); Neutrophils % (A) 55.4 %
[2024-11-13 22:56] LABS: BUN/Creat Ratio 21.78 Ratio (12.00-20.00); Blood Urea Nitrogen 19.6 mg/dL (9.0-27.0); Calcium 9.4 mg/dL (8.7-10.3); Carbon Dioxide 25.7 mmol/L (21.6-31.8); Chloride 102 mmol/L (96-109); Glucose 100 mg/dL (70-110); Potassium 3.8 mmol/L (3.5-5.5); Sodium 143 mmol/L (135-145)
== END | disposition home or self-care (01) ==
LOC: LABWHC1 14:49
PROVIDERS: ATTEND Urology
DX: Z01.812 Encounter for preprocedural laboratory examination (principal)
CPT/HCPCS: 36415; 80048; 81003; 85025; 87086